=== PATIENT | male | born 1985 | race Caucasian/White ===

== ENCOUNTER 2023-01-29 08:00 | Inpatient (IN) | payer BC ==
[~2023-01-29] VITALS: Ht 185.4 cm; Wt 115.7 kg
[2023-01-29 08:05] VITALS: BP_SYST 150; PULSE 74; RESP 20; TEMP 97.7; O2SAT 99
[2023-01-29 09:11] LABS: BASOPHILS % (AUTO) 0.3 % (0.0-2.0); EOSINOPHILS # (AUTO) 0.3 K/uL (0.0-0.4); EOSINOPHILS % (AUTO) 3.4 % (0.0-4.0); HEMATOCRIT 40.5 % (36-54); HEMOGLOBIN 13.7 g/dL (14.0-18.0); LYMPHOCYTES % (AUTO) 22.6 % (20.5-51.5); MEAN CORPUSCULAR HEMOGLOBIN 29 pg (27-31); MEAN CORPUSCULAR HGB CONC 34 % (32-36); MEAN CORPUSCULAR VOLUME 87 fL (79.0-98.0); MONOCYTES # (AUTO) 0.6 K/uL (0.0-1.0); MONOCYTES % (AUTO) 7.4 % (1.7-9.3); NEUTROPHILS # (AUTO) 5.7 K/uL (1.8-7.7); NEUTROPHILS % (AUTO) 66.3 % (40.0-70.0); PLATELET COUNT (AUTO) 364 K/uL (130-430); RED BLOOD CELL COUNT(AUTO) 4.67 MIL/uL (4.2-6.2); RED CELL DISTRIBUTION WIDTH 13.5 % (9.0-15.0); WHITE BLOOD COUNT (AUTO) 8.6 K/uL (4.8-10.8)
[2023-01-29 09:13] LABS: ERYTHROCYTE SEDIMENTATION RATE 9 MM/HR (0-15)
[2023-01-29 09:25] LABS: ANION GAP 6 (5-15); CALCIUM 9.5 mg/dL (8.4-11.0); CARBON DIOXIDE 30 mmol/L (23-29); CHLORIDE 100 mmol/L (98-107); GFR AFRICAN AMERICAN 138 mL/min (>90); GLUCOSE 102 mg/dL (74-106); POTASSIUM 3.9 mmol/L (3.5-5.1); PROTHROMBIN TIME 10.2 SECS (9.5-12.5); SODIUM SERUM 136 mmol/L (136-145); UREA NITROGEN, BLOOD 10 mg/dL (8-21)
[2023-01-29 09:26] LABS: GFR NON AFRICAN-AMERICAN 114 mL/min (>90)
[2023-01-29 09:35] LABS: BILIRUBIN,URINE NEGATIVE (NEGATIVE); CLARITY/URINE CLEAR (CLEAR); COLOR,URINE YELLOW (YELLOW); GLUCOSE,URINE NEGATIVE (NEGATIVE); KETONES,URINE NEGATIVE (NEGATIVE); LEUKOCYTE ESTERASE ,URINE TRACE (NEGATIVE); NITRITE, URINE NEGATIVE (NEGATIVE); PROTEIN URINE NEGATIVE (NEGATIVE); UROBILINOGEN,URINE 0.2 (0.2-1.0)
[2023-01-29 09:38] LABS: BLOOD, URINE TRACE (NEGATIVE)
[2023-01-29 09:43] LABS: HEMOGLOBIN A1C 4.52 % (<5.7)
[2023-01-29 09:46] LABS: BACTERIA,URINE MODERATE /HPF (None Seen); RBC,URINE 0-3 /HPF (0-3); WBC,URINE 0-3 /HPF (0-3)
[2023-01-29 09:58] LABS: BARBITURATE, URINE NEGATIVE (NEG <=200); BENZODIAZEPINE, URINE NEGATIVE (NEG <=150); CANNABINOID, URINE NEGATIVE (NEG <=50); COCAINE, URINE POSITIVE (NEG <=150); METHAMPHETAMINES SCREEN,URINE NEGATIVE (NEG <=500); OPIATE, URINE NEGATIVE (NEG <=100); PHENCYCLIDINE SCREEN,URINE NEGATIVE (NEG <=25); UR TRICYCLIC ANTIDEPRESSANTS NEGATIVE (NEG <=300); URINE AMPHETAMINE NEGATIVE (NEG <=500); URINE METHADONE NEGATIVE (NEG <=200); URINE OXYCODONE SCREEN NEGATIVE (NEG <=100); URINE PROPOXYPHENE SCREEN NEGATIVE (NEG <=300)
[2023-01-29 09:58] LABS: ALANINE AMINOTRANSFERASE 75 U/L (12-78); ALBUMIN 3.2 g/dL (3.4-4.8); ASPARTATE AMINOTRANSFERASE 34 U/L (10-37); FREE T4 (FREE THYROXINE) 1.2 ng/dL (0.6-1.6); PHOSPHORUS 3.7 mg/dL (2.7-4.5); THYROID STIMULATING HORMONE 0.99 uIu/mL (0.34-4.82); TOTAL BILIRUBIN 0.3 mg/dL (0.0-1.0); TOTAL PROTEIN, SERUM 7.4 g/dL (6.4-8.3)
[2023-01-29 09:59] LABS: ALCOHOL, BLOOD < 3 mg/dL (<10)
[2023-01-29 11:44] LABS: CSF APPEARANCE CLEAR (CLEAR); CSF COLOR COLORLESS (COLORLESS); CSF GLUCOSE 61 mg/dL (40-70); CSF PROTEIN 55 mg/dL (15-45)
[2023-01-29 12:21] LABS: CSF RED BLOOD CELL COUNT #1 135 /uL (0-0)
[2023-01-29 12:22] LABS: CSF LYMPHOCYTES 100 % (40-60); CSF WHITE BLOOD CELL COUNT #1 5 /uL (0-5)
[2023-01-29 17:30] VITALS: O2SAT 96
[2023-01-29] MEDS ORDERED: BENZ100C92 PO (17:47)
[2023-01-29] MEDS ORDERED: DOXY100T2 PO (17:50)
[2023-01-29] MEDS ORDERED: AMOX500C2 PO (17:52)
[2023-01-29 17:53] VITALS: BP_SYST 157; PULSE 72; RESP 16; TEMP 98
[2023-01-29 19:00] VITALS: BP_SYST 142; PULSE 82; PULSE 87; RESP 16; TEMP 98.8; O2SAT 98
[2023-01-29] MEDS ORDERED: guaiFENesin/DEXTROMETHORPHAN 10 ML UDC PO PRN (19:45)
[2023-01-29] MEDS ORDERED: IPRATROPIUM/ALBUTEROL SULFATE 3 ML AMPUL.NEB (DUONEB) INH PRN (19:45)
[2023-01-29] MEDS ORDERED: TEMAZEPAM 15 MG CAPSULE PO PRN (20:00)
[2023-01-29] MEDS ORDERED: IMMUNE GLOBULIN (IVIG) - GAMUNEX-C 10% 100 mL BOTTLE IV ONE (20:30)
[2023-01-29] MEDS: BENZONATATE 100 MG CAPSULE (TESSALON) PO SCH (21:00)
[2023-01-29] MEDS: cefTRIAXone 1 GM in D5W 50 ML IV SCH (23:13)
[2023-01-29] MEDS: AZITHROMYCIN 500 MG in NS 250 ML IV SCH (23:14)
[2023-01-30] VITALS (9 sets, daily range): BP systolic 121–157; PULSE 65–82; RESP 16–20; TEMP 97.8–98.2; O2SAT 97–99
[2023-01-30 03:22] LABS: BASOPHILS % (AUTO) 0.2 % (0.0-2.0); EOSINOPHILS # (AUTO) 0.2 K/uL (0.0-0.4); EOSINOPHILS % (AUTO) 1.8 % (0.0-4.0); HEMATOCRIT 38.8 % (36-54); HEMOGLOBIN 13.4 g/dL (14.0-18.0); LYMPHOCYTES # (AUTO) 1.7 K/uL (1.0-5.5); LYMPHOCYTES % (AUTO) 20.1 % (20.5-51.5); MEAN CORPUSCULAR HEMOGLOBIN 30 pg (27-31); MEAN CORPUSCULAR HGB CONC 35 % (32-36); MEAN CORPUSCULAR VOLUME 86 fL (79.0-98.0); MONOCYTES # (AUTO) 0.6 K/uL (0.0-1.0); MONOCYTES % (AUTO) 6.6 % (1.7-9.3); NEUTROPHILS # (AUTO) 6.2 K/uL (1.8-7.7); NEUTROPHILS % (AUTO) 71.3 % (40.0-70.0); PLATELET COUNT (AUTO) 353 K/uL (130-430); RED BLOOD CELL COUNT(AUTO) 4.52 MIL/uL (4.2-6.2); RED CELL DISTRIBUTION WIDTH 13.3 % (9.0-15.0); WHITE BLOOD COUNT (AUTO) 8.7 K/uL (4.8-10.8)
[2023-01-30 03:33] LABS: ALBUMIN 2.8 g/dL (3.4-4.8); CALCIUM 8.8 mg/dL (8.4-11.0); CREATININE 0.92 mg/dL (0.55-1.30); PHOSPHORUS 3.2 mg/dL (2.7-4.5); POTASSIUM 3.4 mmol/L (3.5-5.1); TOTAL BILIRUBIN 0.2 mg/dL (0.0-1.0); TOTAL PROTEIN, SERUM 7.2 g/dL (6.4-8.3)
[2023-01-30] MEDS: BENZONATATE 100 MG CAPSULE (TESSALON) PO SCH ×3 (09:16→21:16)
[2023-01-30] MEDS: MULTIVITS,CA,MINERALS/IRON/FA 1 TABLET PO SCH (09:16)
[2023-01-30] MEDS ORDERED: INSULIN REGULAR, HUMAN 100 UNITS/ML, 3 ML VIAL (humuLIN R) SUBCUT PRN (11:30)
[2023-01-30] MEDS ORDERED: POTASSIUM CHLORIDE 20 MEQ TAB.PRT.SR PO ONE (11:30)
[2023-01-30] MEDS ORDERED: DEXTROSE 50% JECT 50 ML DISP.SYRIN IVP PRN (11:30)
[2023-01-30] MEDS: IMMUNE GLOBULIN (IVIG) - GAMUNEX-C 10% 100 mL BOTTLE IV SCH (17:28)
[2023-01-30] MEDS: cefTRIAXone 1 GM in D5W 50 ML IV SCH (21:16)
[2023-01-30] MEDS: AZITHROMYCIN 500 MG in NS 250 ML IV SCH (22:40)
[2023-01-31 00:24] VITALS: BP_SYST 140; PULSE 68; RESP 17; TEMP 98.1; O2SAT 97
[2023-01-31 08:05] VITALS: BP_SYST 139; PULSE 75; RESP 16; TEMP 97.3; O2SAT 99
[2023-01-31] MEDS: MULTIVITS,CA,MINERALS/IRON/FA 1 TABLET PO SCH (09:04)
[2023-01-31] MEDS: POTASSIUM CHLORIDE 20 MEQ TAB.PRT.SR PO SCH (09:04)
[2023-01-31] MEDS: BENZONATATE 100 MG CAPSULE (TESSALON) PO SCH ×3 (09:04→20:36)
[2023-01-31 09:47] VITALS: O2SAT 98
[2023-01-31 16:00] VITALS: BP_SYST 154; PULSE 79; RESP 16; TEMP 96.9; O2SAT 95
[2023-01-31] MEDS: IMMUNE GLOBULIN (IVIG) - GAMUNEX-C 10% 100 mL BOTTLE IV SCH (18:13)
[2023-01-31 20:00] VITALS: BP_SYST 137; PULSE 72; RESP 17; TEMP 97.8; O2SAT 98
[2023-01-31] MEDS: cefTRIAXone 1 GM in D5W 50 ML IV SCH (20:36)
[2023-01-31] MEDS: AZITHROMYCIN 500 MG in NS 250 ML IV SCH (22:06)
[2023-02-01 00:11] VITALS: BP_SYST 142; PULSE 72; RESP 18; TEMP 98; O2SAT 98
[2023-02-01 05:56] LABS: BASOPHILS % (AUTO) 0.4 % (0.0-2.0); EOSINOPHILS # (AUTO) 0.4 K/uL (0.0-0.4); EOSINOPHILS % (AUTO) 7.8 % (0.0-4.0); HEMATOCRIT 42.5 % (36-54); HEMOGLOBIN 14.6 g/dL (14.0-18.0); LYMPHOCYTES % (AUTO) 37.2 % (20.5-51.5); MEAN CORPUSCULAR HEMOGLOBIN 29 pg (27-31); MEAN CORPUSCULAR HGB CONC 34 % (32-36); MEAN CORPUSCULAR VOLUME 85 fL (79.0-98.0); MONOCYTES # (AUTO) 0.6 K/uL (0.0-1.0); MONOCYTES % (AUTO) 10.5 % (1.7-9.3); NEUTROPHILS # (AUTO) 2.4 K/uL (1.8-7.7); NEUTROPHILS % (AUTO) 44.1 % (40.0-70.0); PLATELET COUNT (AUTO) 355 K/uL (130-430); RED BLOOD CELL COUNT(AUTO) 4.99 MIL/uL (4.2-6.2); RED CELL DISTRIBUTION WIDTH 13.3 % (9.0-15.0); WHITE BLOOD COUNT (AUTO) 5.4 K/uL (4.8-10.8)
[2023-02-01 06:21] LABS: CALCIUM 9.4 mg/dL (8.4-11.0); CREATININE 0.84 mg/dL (0.55-1.30); POTASSIUM 3.9 mmol/L (3.5-5.1); TOTAL BILIRUBIN 0.3 mg/dL (0.0-1.0); TOTAL PROTEIN, SERUM 8.2 g/dL (6.4-8.3)
[2023-02-01 08:08] VITALS: BP_SYST 138; PULSE 65; RESP 18; TEMP 98.1; O2SAT 97
[2023-02-01] MEDS: POTASSIUM CHLORIDE 20 MEQ TAB.PRT.SR PO SCH (09:39)
[2023-02-01] MEDS: BENZONATATE 100 MG CAPSULE (TESSALON) PO SCH ×3 (09:39→21:30)
[2023-02-01] MEDS: MULTIVITS,CA,MINERALS/IRON/FA 1 TABLET PO SCH (09:39)
[2023-02-01 10:19] VITALS: BP_SYST 138; PULSE 65; O2SAT 97
[2023-02-01] MEDS: ACETAMINOPHEN 325 MG TABLET PO PRN (11:16)
[2023-02-01 12:00] VITALS: BP_SYST 142; PULSE 57; RESP 16; TEMP 97.9; O2SAT 98
[2023-02-01 16:00] VITALS: BP_SYST 121; PULSE 74; RESP 16; TEMP 98.2; O2SAT 97
[2023-02-01] MEDS ORDERED: MULT-1145 PO (17:20)
[2023-02-01] MEDS: IMMUNE GLOBULIN (IVIG) - GAMUNEX-C 10% 100 mL BOTTLE IV SCH (18:17)
[2023-02-01 20:00] VITALS: BP_SYST 125; PULSE 68; RESP 17; TEMP 98; O2SAT 96
[2023-02-01] MEDS: cefTRIAXone 1 GM in D5W 50 ML IV SCH (22:37)
[2023-02-01] MEDS: AZITHROMYCIN 500 MG in NS 250 ML IV SCH (23:36)
[2023-02-02] VITALS: BP_SYST 120; PULSE 72; RESP 18; TEMP 97.8; O2SAT 97
[2023-02-02 07:39] VITALS: BP_SYST 132; PULSE 71; RESP 16; TEMP 97.3; O2SAT 98
[2023-02-02] MEDS: BENZONATATE 100 MG CAPSULE (TESSALON) PO SCH ×2 (09:23→17:21)
[2023-02-02] MEDS: MULTIVITS,CA,MINERALS/IRON/FA 1 TABLET PO SCH (09:23)
[2023-02-02] MEDS ORDERED: DOXY100C5 PO (12:11)
[2023-02-02] MEDS: ACETAMINOPHEN 325 MG TABLET PO PRN (12:24)
[2023-02-02 12:26] VITALS: BP_SYST 151; PULSE 77; RESP 16; TEMP 95.8; O2SAT 100
[2023-02-02 16:00] VITALS: BP_SYST 146; PULSE 65; RESP 16; TEMP 95.6; O2SAT 97
[2023-02-02] MEDS: IMMUNE GLOBULIN (IVIG) - GAMUNEX-C 10% 100 mL BOTTLE IV SCH (17:03)
[2023-02-03 11:07] LABS: VDRL, CSF Non Reactive (Non Rea:<1:1)
== END 2023-02-02 19:40 | disposition home or self-care (01) | DRG 94 ==
LOC: SED 08:00 → SMU 13:56
PROVIDERS: ADMIT Internal Medicine; ATTEND Internal Medicine
DX: G61.0 Guillain-Barre syndrome (principal); J18.9 Pneumonia, unspecified organism; N39.0 Urinary tract infection, site not specified; E87.1 Hypo-osmolality and hyponatremia; E44.1 Mild protein-calorie malnutrition; E87.6 Hypokalemia; Z79.2 Long term (current) use of antibiotics; Z79.899 Other long term (current) drug therapy; Z68.33 Body mass index [BMI] 33.0-33.9, adult
CPT/HCPCS: 36415; 70450-TC; 71045; 71046-TC; 76376; 80053; 80307; 81000; 81001; 81015; 82306; 82607; 82947; 82962; 83037; 83735; 84100; 84157; 84439; 84443; 84484; 85025; 85048; 85610-TC; 85651-TC; 85730-TC; 86592; 86788; 86789; 87070-TC; 87086; 87205-TC; 89051-TC; 93005; 94760; 97112-GP; 97116-GP; 97530-GP; 99291; G0482; J0456; J0696; J1572; J7050; J7060